=== PATIENT | female | born 1990 | race Caucasian/White ===

== ENCOUNTER 2021-05-17 22:19 | Emergency (ER) | payer SELFPAY ==
[2021-05-17] VITALS (8 sets, daily range): BP systolic 101–122; BP diastolic 59–74; PULSE 85–98; RESP 12–19; TEMP 36.3; O2SAT 92–99
--- NOTE | 2021-05-17 22:15 | RT.EKG_ITS ---
APPROVED REPORT Exam: Resting ECG Reason for Exam: chest pain Patient Location: E HR:89 bpm ECG Measurements Heart Rate 89 AXIS TX 117 P 26 QRSd 98 QRS 31 QT 353 T 40 QTc 431 Conclusion Sinus rhythm...normal P axis No ST elevation
--- NOTE | 2021-05-17 22:30 | DI.RAD_ITS ---
Exam(s) XR CHEST 2V PA LATERAL EXAM: XR CHEST 2V PA LATERAL CLINICAL HISTORY: CP, andxiety. TECHNIQUE: 2D digital imaging was performed. COMPARISON: No exams were available for comparison FINDINGS: Heart size is normal. The mediastinum is not widened. Lungs are clear. No infiltrates nor pleural effusions. IMPRESSION: No acute pulmonary findings. DATA REPOSITORY: RADIATION DOSE DELIVERED:
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
[2021-05-17] MEDS: LORazepam 2 MG/ML VIAL 1 MG IVP (22:58)
[2021-05-17 23:00] LABS: Abs Immature Grans 0.01 10^3/uL (0.0-0.06); Absolute Basophil Count 0.02 10^3/uL (0.0-0.2); Absolute Eosinophil Count 0.05 10^3/uL (0.0-0.7); Absolute Lymphocyte Count 1.82 10^3/uL (1.2-3.4); Absolute Monocyte Count 0.51 10^3/uL (0.1-0.8); Absolute Neutrophil Count 2.34 10^3/uL (1.2-6.7); Basophils % 0.4; Eosinophils % 1.1; Immature Grans % 0.2; Lymphocytes % 38.3; MCH 27.4 pg (27.0-33.0); MCHC 32.4 % (32.0-36.0); MCV 84.8 fL (80-95); Monocytes % 10.7; Neutrophils % 49.3; Nucleated RBC 0 %; Platelet Count 230 10^3/uL (130-400); RBC 4.01 10^6/uL (3.93-5.22); RDW 15.1 % (11.7-14.6); RDW-SD 46.6 fL; WBC 4.75 10^3/uL (4.4-10.8)
[2021-05-17 23:01] LABS: Bilirubin Negative (Negative); Blood Trace-intact (Negative); Clarity Sl Cloudy (Clear); Glucose Negative (Negative); Ketones Negative (Negative); Leukocyte Esterase Small (Negative); Nitrite Negative (Negative); Specific Gravity 1.015 (1.005-1.025); Urobilinogen 0.2 EU/dL (Up TO 0.2); pH 8.5 (5-8)
[2021-05-17 23:08] LABS: Bacteria Few HPF (Negative); C & S Indicated? Yes; Casts Negative LPF (Negative); Crystals Negative HPF (Negative); Epithelial Cells Few HPF (Negative); Mucus Negative (Negative)
[2021-05-17 23:16] LABS: ALT 18 U/L (14-59); AST 12 U/L (15-37); Albumin 3.3 g/dL (3.4-5.0); Alkaline Phosphatase 101 U/L (46-116); Anion Gap 11.3 mmol/L (3-11); BUN 5 mg/dL (7-18); Bilirubin, Total 0.2 mg/dL (0.2-1.0); CO2 24.7 mmol/L (21.0-32.0); Calcium 8.9 mg/dL (8.5-10.1); Chloride 107 mmol/L (98-107); Glucose 88 mg/dL (74-106); Potassium 3.4 mmol/L (3.5-5.1); Sodium 143 mmol/L (136-145); Total Protein 6.9 g/dL (6.4-8.2)
[2021-05-17 23:17] LABS: Magnesium 1.9 mg/dL (1.8-2.4)
[2021-05-17 23:18] LABS: Troponin I < 0.05 ng/mL (<0.06)
--- NOTE | 2021-05-17 23:33 | DI.VRAD_ITS ---
PROCEDURE INFORMATION: Exam: XR Chest Exam date and time: 05/17/2021 10:41 PM Age: 30 years old Clinical indication: Other: Cp, anxiety TECHNIQUE: Imaging protocol: XR of the chest. Views: 2 views. COMPARISON: No relevant prior studies available. FINDINGS: Lungs: Unremarkable. No consolidation. Pleural spaces: Unremarkable. No pleural effusion. No pneumothorax. Heart/Mediastinum: Unremarkable. No cardiomegaly. Bones/joints: Unremarkable. IMPRESSION: No acute findings. Dictated and Authenticated by: Chris Villavicencio MD. Ordering:TALYA Mcdermott MD
[2021-05-17 23:34] LABS: D-Dimer 297 ng/mlFEU (<500)
[2021-05-17] MEDS: Ketorolac 30 MG/ML VIAL IVP (23:58)
[2021-05-18] VITALS (13 sets, daily range): BP systolic 98–105; BP diastolic 51–63; PULSE 69–89; RESP 10–21; TEMP 36.7; O2SAT 98–99
--- NOTE | 2021-05-18 00:55 | DI.VRAD_ITS ---
PROCEDURE INFORMATION: Exam: CT Head Without Contrast Exam date and time: 05/17/2021 10:41 PM Age: 30 years old Clinical indication: Other: Cp, anxiety, L numbness TECHNIQUE: Imaging protocol: Computed tomography of the head without contrast. Radiation optimization: All CT scans at this facility use at least one of these dose optimization techniques: automated exposure control; mA and/or kV adjustment per patient size (includes targeted exams where dose is matched to clinical indication); or iterative reconstruction. COMPARISON: No relevant prior studies available. FINDINGS: Brain: Normal. No hemorrhage. Unremarkable white matter. No mass effect. Cerebral ventricles: No ventriculomegaly. Paranasal sinuses: Visualized sinuses are unremarkable. No fluid levels. Mastoid air cells: Visualized mastoid air cells are well aerated. Bones/joints: Unremarkable. No acute fracture. Soft tissues: Unremarkable. IMPRESSION: No acute intracranial abnormality. Dictated and Authenticated by: Chris Villavicencio MD. Ordering:TALYA Mcdermott MD
[2021-05-18] MEDS: Lidocaine 5% Patch 1 PATCH TP (01:10)
[2021-05-18 01:56] LABS: Troponin I < 0.05 ng/mL (<0.06)
--- NOTE | 2021-05-18 22:30 | DI.CT_ITS ---
Exam(s) CT HEAD WO EXAM: CT HEAD WO CLINICAL HISTORY: CP, anxiety, L numbness. TECHNIQUE: Imaging Protocol: Axial computed tomography images with coronal and sagittal reformatted images were created and reviewed COMPARISON: No exams were available for comparison FINDINGS: There are no skull fractures nor fluid in the visualized paranasal sinuses. There is no evidence of intracranial hemorrhage, mass effect, or shift of midline structures. There are no extra-axial fluid collections. The ventricles are not enlarged or shifted and there is no blo od within the ventricular system nor within the basal cisterns. IMPRESSION: No acute intracranial findings on this noninfused CT scan of the brain. RADIATION DOSE DELIVERED: 896.88mGy.cm Total DLP DATA REPOSITORY: All CT scans at this facility are submitted to the National Radiology Data Registry (NRDR) Dose Index Registry (DIR) with the [employer] ([employer]). RADIATION OPTIMIZATION: All CT scans at this facility use at least one of these dose optimization te chniques: automated exposure control; mA and/or kV adjustment per patient size (includes targeted exa ms where dose is matched to clinical indication); or iterative reconstruction.
== END 2021-05-18 02:12 | disposition home or self-care (01) ==
PROVIDERS: Emergency Medicine; Emergency Provider Student in an Organized Health Care Education/Training Program
DX: R07.89 Other chest pain (principal); R20.2 Paresthesia of skin; F41.9 Anxiety disorder, unspecified
CPT/HCPCS: 36415; 80053; 81025; 93005; 96374; 96375; 99285; 70450; 71046; 81003; 81015; 83735; 84484; 85025; 85379; 87086; 93010; 99284; J1885; J2060

== ENCOUNTER 2024-11-13 09:12 | Outpatient (CLI) | payer SELFPAY ==
--- NOTE | 2024-11-13 09:15 | RT.EKG_ITS ---
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
== END 2024-11-13 09:13 | disposition home or self-care (01) ==
PROVIDERS: Visit Provider Family Medicine
DX: Z79.899 Other long term (current) drug therapy (principal)
CPT/HCPCS: 93005; 93010